=== PATIENT | female | born 2000 | race Caucasian/White ===

== ENCOUNTER 2022-11-08 00:42 | Emergency (ER) | payer SELFPAY ==
[~2022-11-08] VITALS: Ht 172.7 cm; Wt 74.8 kg
[2022-11-08 00:46] VITALS: BP 120/64
--- NOTE | 2022-11-08 00:46 | NUR ---
[facility]ASS[facility] ER CHAIR A
--- NOTE | 2022-11-08 01:15 | NUR ---
friends arrived for pickle maker.
[2022-11-08] MEDS ORDERED: ONDA-188 SL (01:30)
[2022-11-08] MEDS ORDERED: ONDANSETRON 4 MG ODT PO ONE (01:30)
[2022-11-08 01:35] VITALS: BP 120/64
--- NOTE | 2022-11-08 01:35 | NUR ---
Patient discharged with v/s stable. Written and verbal after care instructions given and explained. Patient alert, oriented and verbalized understanding of instructions. Wheel Chair Assisted with to car. All questions addressed prior to discharge. ID band removed. Patient advised to follow up with PMD. Rx of zofran given. Patient educated on indication of medication including possible reaction and side effects. Opportunity to ask questions provided and answered.
== END 2022-11-08 01:35 | disposition home or self-care (01) ==
LOC: MED 00:42
DX: F10.129 Alcohol abuse with intoxication, unspecified (principal); Y90.9 Presence of alcohol in blood, level not specified
CPT/HCPCS: 99283; Q0162